=== PATIENT | male | born 2000 | race Caucasian/White ===

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

== ENCOUNTER → 2019-01-13 14:59 | Outpatient (CLI) | payer OTHER, SELFPAY ==
--- NOTE | 2019-01-13 15:07 | XR_ITS ---
XR knee LT 3V HISTORY: ITS.REASON: LT KNEE PAIN ORDERING PHYSICIAN: Starr Azevedo APRN PATIENT AGE: 18 years COMPARISON: Rliev FINDINGS: No fracture or dislocation. No lytic or blastic change. Normal mineralization. No significant arthritic changes evident. No other significant findings IMPRESSION: Negative Knee
== END ==
PROVIDERS: PCP Family Medicine; Visit Provider Nurse Practitioner Family
DX: M25.562 Pain in left knee (principal)
CPT/HCPCS: 73562

== ENCOUNTER → 2019-05-24 12:10 | Outpatient (CLI) | payer BC, SELFPAY ==
--- NOTE | 2019-05-24 13:08 | XR_ITS ---
PROCEDURE: XR ACUTE ABDOMEN SERIES CLINICAL INDICATION: RLQ PAIN COMPARISON: CXR2V XR chest 2V from 12/30/2017 FINDINGS: Frontal view the chest shows no acute finding. There is a subtle nodular opacity in the left midlung at 9 mm probably unchanged. Upright and supine views of the abdomen demonstrates a nonspecific nonobstructive bowel gas pattern. No intestinal obstruction free air or acute bony anomalies. There is a small calcific density in the left pelvic region at 2 mm and may be due to phleboliths. IMPRESSION: Nonspecific nonacute findings Dictated by: Rio De Los Santos MD 05/24/2019 13:31 Electronically signed by Rio De Los Santos MD in [place] 05/24/2019 13:31
== END ==
PROVIDERS: PCP Nurse Practitioner Family; Visit Provider Nurse Practitioner Family
DX: R10.31 Right lower quadrant pain (principal)
CPT/HCPCS: 74021

== ENCOUNTER → 2020-02-02 15:06 | Outpatient (CLI) | payer BC, SELFPAY | PROVIDERS: PCP Family Medicine; Visit Provider Nurse Practitioner | DX: Z20.828 Contact with and (suspected) exposure to other viral communicable diseases (principal) | CPT/HCPCS: U0003 ==

== ENCOUNTER 2021-10-06 19:16 | Emergency (ER) | payer BC, SELFPAY ==
--- NOTE | 2021-10-06 19:23 | XR_ITS ---
PROCEDURE INFORMATION: Exam: XR Right Foot Exam date and time: 10/06/2021 7:23 PM Age: 21 years old Clinical indication: Injury or trauma; Other: Hit with softball on lateral foot; Blunt trauma; Right; Additional info: Pain aftger hit with softball during practice TECHNIQUE: Imaging protocol: XR Right foot. Views: 3 or more views. COMPARISON: CR XR ANKLE RT MIN 3V 10/06/2021 7:21 PM FINDINGS: Bones/joints: No acute fracture or dislocation. Soft tissues: Normal. IMPRESSION: No acute fracture or dislocation.
--- NOTE | 2021-10-06 19:23 | XR_ITS ---
PROCEDURE INFORMATION: Exam: XR Right Ankle Exam date and time: 10/06/2021 7:21 PM Age: 21 years old Clinical indication: Injury or trauma; Other: Hit with softball lateral ankle and foot; Blunt trauma; Right; Additional info: Pain lateral ankle and foot after being hit with softball during practice TECHNIQUE: Imaging protocol: XR Right ankle. Views: 3 or more views. COMPARISON: CR (KNEE AP, KNEE, KNEE AP) 01/13/2019 3:21 PM FINDINGS: Bones/joints: No acute fracture or dislocation. Soft tissues: Mild lateral soft tissue edema. IMPRESSION: No acute fracture or dislocation.
[2021-10-06 20:14] VITALS: BP 155/97; PULSE 101; RESP 19; TEMP 36.9; O2SAT 96; BMI 31.1
--- NOTE | 2021-10-06 20:47 | HMH.EDUTC ---
[facility] [place] Disposition Clinical Impression: Contusion of foot, right Qualifiers: Encounter type: initial encounter Qualified Code(s): S90.31XA - Contusion of right foot, initial encounter Disposition: Home, Self-Care Condition on Discharge: Good Instructions: How to Use Crutches, How to Apply an Felix Wrap, DI for Foot Pain Additional Instructions: Rest the extremity, apply ice for 15 minutes as tolerated three or four times per day, Wear the felix wrap for compression, Elevate the extremity as tolerated while you are resting. Take ibuprofen for pain. I sent in a prescription to your pharmacy. Follow up with Dr. Jewell (orthopedics). Sometimes there can be fractures that don't show up well on the first set of x-rays. So, you should follow up if you continue to have symptoms. I put in a referral but you need to call her office and schedule an appointment. Follow up with your regular doctor. GO TO THE ER FOR ANY WORSENING SYMPTOMS Prescriptions: Ibuprofen [Ibuprofen 800mg Tablet] 800 mg PO Q8HP PRN #30 tab PRN Reason: Moderate Pain Transmission Status: Received by [id number] Referrals: Mna Guan MD [Primary Care Provider] - Jennifer Jewell DPM [Staff Physician] - Time of Disposition: 21:01 Medical Decision Making - Medical Records Medical records reviewed: No: I reviewed the patient's medical records. - José Miguel Inquiry Pt receiving controlled substance: No Vital Signs: 10/06/21 20:14 10/06/21 21:09 Temperature 98.4 F 98.4 F Temperature Source Oral Pulse Rate 101 H Pulse Rate [Left] 101 H Respiratory Rate 19 19 Blood Pressure 155/97 H Blood Pressure [Right Arm] 155/97 H Blood Pressure Mean [Right Arm] 116 02 Sat by Pulse Oximetry 96 - Radiology Data #1 Image(s): Foot/Toes Image Reviewed: Yes I reviewed the patient's radiology image, Yes I have reviewed radiologist's interpretation Preliminary Findings: Normal/NAD PROCEDURE INFORMATION: Exam: XR Right Foot Exam date and time: 10/06/2021 7:23 PM Age: 21 years old Clinical indication: Injury or trauma; Other: Hit with softball on lateral foot; Blunt trauma; Right; Additional info: Pain aftger hit with softball during practice TECHNIQUE: Imaging protocol: XR Right foot. Views: 3 or more views. COMPARISON: CR XR ANKLE RT MIN 3V 10/06/2021 7:21 PM FINDINGS: Bones/joints: No acute fracture or dislocation. Soft tissues: Normal. IMPRESSION: No acute fracture or dislocation. [facility] [place] HPI - General Stated complaint: rt foot injury ao 10/06/21 Time Seen by Provider: 10/06/21 20:47 Mode of Arrival: Ambulatory Source of Information: Patient Limitations: No Limitations Description of Symptoms (Recalled from Triage Doc. by RN): pt was playing softball and the ball hit him on the top of his R foot. R foot/ankle pain HEENT Symptoms (Recalled from RN notes): No Resp Symptoms (Recalled from RN notes): No Skin Symptoms (Recalled from RN notes): No MS Symptoms (Recalled from RN notes): Yes Functional Status (Recalled from RN notes): wnl - History of Present Illness Provider Complaint: He was hitting softball in a batting cage. Someone hit a line drive and it hit him on the top of the right foot. Onset (ago): hour(s) - Related Data Previous Rx's Medication Instructions Recorded Ibuprofen [Ibuprofen 800mg 800 mg PO Q8HP PRN #30 tab 10/06/21 Tablet] Allergies Allergy/AdvReac Type Severity Reaction Status Date / Time No Known Allergies Allergy Unverified 06/17/17 15:05 - Worker's Comp Is this a Worker's Comp case?: No [facility] History - Hepatitis A Screen Drug use history?: No High risk sexual behaviors?: No History of sexually transmitted infection?: No Currently employed?: No Childcare worker?: No Do you have indoor plumbing?: Yes Do you have electricity?: Yes Attestation statement:: This patient has been screened
[2021-10-06 21:09] VITALS: BP 155/97; PULSE 101; RESP 19; TEMP 36.9
== END 2021-10-06 21:11 | disposition home or self-care (01) ==
PROVIDERS: Emergency Provider Nurse Practitioner Family; PCP Family Medicine
DX: S90.31XA Contusion of right foot, initial encounter (principal); M25.571 Pain in right ankle and joints of right foot; Z79.1 Long term (current) use of non-steroidal anti-inflammatories (NSAID); W21.07XA Struck by softball, initial encounter
CPT/HCPCS: 73610; 73630; 99213; G0463

== ENCOUNTER 2023-04-03 19:04 | Emergency (ER) | payer OTHER, SELFPAY ==
[2023-04-03 19:05] VITALS: BP 151/94; PULSE 75; RESP 19; TEMP 36.7; O2SAT 98; BMI 33.0
[2023-04-03 19:09] VITALS: BP 151/94; PULSE 79; O2SAT 96
--- NOTE | 2023-04-03 19:19 | CT_ITS ---
PROCEDURE INFORMATION: Exam: CT Abdomen And Pelvis Without Contrast Exam date and time: 04/03/2023 7:45 PM Age: 23 years old Clinical indication: Abdominal pain; Flank; Left; Additional info: L acute flank pain TECHNIQUE: Imaging protocol: Computed tomography of the abdomen and pelvis without contrast. Radiation optimization: All CT scans at this facility use at least one of these dose optimization techniques: automated exposure control; mA and/or kV adjustment per patient size (includes targeted exams where dose is matched to clinical indication); or iterative reconstruction. REPORTING DATA: Count of CT and Cardiac NM exams in prior 12 months: This patient has received 0 known CTs and 0 known cardiac nuclear medicine studies in the 12 months prior to the current study. COMPARISON: CR XR ACUTE ABDOMEN SERIES 05/24/2019 1:18 PM FINDINGS: Liver: Normal. No mass. Gallbladder and bile ducts: Normal. No calcified stones. No ductal dilation. Pancreas: Normal. No ductal dilation. Spleen: Multiple benign-appearing calcific densities of the spleen. Adrenal glands: Normal. No mass. Kidneys and ureters: Nonobstructive right sided kidney stone measures 3 mm. Mild left hydronephrosis and hydroureter lead up to a ureterolith at the left UVJ ureterolith measuring 2 mm. Nonobstructive left sided kidney stone measures 3 mm. Stomach and bowel: Diverticula are scattered throughout the colon without inflammatory changes. Appendix: No evidence of appendicitis. Intraperitoneal space: Unremarkable. No free air. No significant fluid collection. Vasculature: Unremarkable. No abdominal aortic aneurysm. Lymph nodes: Unremarkable. No enlarged lymph nodes. Urinary bladder: Unremarkable as visualized. Reproductive: Unremarkable as visualized. Bones/joints: Unremarkable. No acute fracture. Soft tissues: Normal. IMPRESSION: Mild left hydronephrosis and hydroureter lead up to a ureterolith at the left UVJ ureterolith measuring 2 mm.
--- NOTE | 2023-04-03 19:22 | HMH.EDGENADL ---
Discharge Plan Disposition Patient Disposition: Home, Self-Care Condition: Good Prescriptions Prescriptions: New ketorolac 10 mg tablet 10 mg PO Q6H PRN (Reason: pain) 5 Days Qty: 20 0RF tamsulosin 0.4 mg capsule 0.4 mg PO HS Qty: 20 0RF ondansetron 4 mg tablet,disintegrating 4 mg PO Q8H PRN (Reason: nausea and vomiting) 5 Days Qty: 10 0RF Referrals Follow up/Referrals: Bubba Markham MD [Primary Care Provider] - See instructions Clinical Impressions Clinical Impression: Urolithiasis Qualifiers: Urinary calculus location: upper urinary tract Qualified Code(s): N20.9 - Urinary calculus, unspecified Instructions Patient Instructions: Kidney Stones -- Adult, DI for Kidney Stones Discharge ED Provider: Rudy Garcia Adult HPI General Chief complaint: Abdominal Pain Stated complaint: LT side pain Time Seen by Provider: 04/03/23 19:07 History of Present Illness HPI narrative: The patient presents with a chief complaint of extreme pain on the left side, radiating from the flank to the back, which has been ongoing for approximately 1 hour and 20 minutes. The pain is described as constant and breathtaking, with no prior history of similar pain. The patient denies any attempts at self-medication, such as taking Tylenol. The patient has no known medical problems, takes no medications, and has no history of kidney stones or family history of kidney stones. The patient denies any previous abdominal surgeries and has no known allergies to medications. The patient reports no associated nausea, vomiting, or dysuria. The pain does not radiate down the leg and there is no midline back pain. The patient denies smoking and any recreational drug use, including intravenous drugs. The patient denies any recent fevers or other symptoms suggestive of infection. Related Data Previous Rx's Medication Instructions Recorded ketorolac 10 mg tablet 10 mg PO Q6H PRN pain 5 days #20 04/03/23 tabs ondansetron 4 mg disintegrating 4 mg PO Q8H PRN nausea and 04/03/23 tablet vomiting 5 days #10 tabs tamsulosin 0.4 mg capsule 0.4 mg PO HS #20 caps 04/03/23 Allergies Allergy/AdvReac Type Severity Reaction Status Date / Time No Known Allergies Allergy Unverified 06/17/17 15:05 PFSH PFSH Disclaimer: The information contained in this section may have been updated after the patient was seen, as this information can be updated by other users. Social History Smoking Status: Never smoker alcohol intake: current current occupational status: other Travel in the last 8 weeks: None ROS Obtained: Yes Systems reviewed as appropriate & no additional complaints except as documented As per HPI Physical Exam General General appearance: alert and other (Acute distress secondary to pain) Head Head exam: atraumatic and normocephalic Eye Eye exam: Present normal appearance Neck Neck exam: Present normal inspection Chest Chest inspection: Present normal inspection and symmetric chest wall rise Respiratory Respiratory exam: Present normal lung sounds bilaterally; Absent respiratory distress Cardiovascular Cardiovascular exam: Present regular rate and normal rhythm Abdominal Exam Abdominal exam: Present soft Abdominal tenderness: Present severe (Left flank tenderness to palpation) Neurological Exam Neurological exam: Present alert and oriented X3 Psychiatric Psychiatric exam: Present normal affect and normal mood Skin Skin exam: Present warm and dry Medical Decision Making Medical Records Medical records reviewed: Yes I reviewed the patient's medical records. José Miguel Inquiry Pt receiving controlled substance: No Vital Signs: 04/03/23 19:05 04/03/23 19:09 04/03/23 20:12 Temperature 98.1 F Temperature Source Oral Pulse Rate 79 Pulse Rate [Right Radial] 75 Respiratory Rate 19 Blood Pressure 151/94 H 132/78 Blood Pressure [Right Arm] 151/94 H Blood Pressure Mean 89 Blood Pressure
--- NOTE | 2023-04-03 19:39 | PC.NURSE ---
patient gone to CT at this time.
[2023-04-03 19:43] LABS: Alanine Aminotransferase 53 U/L (12-78); Albumin Level 5.1 g/dl (3.5-5.0); Albumin/Globulin Ratio 1.4 (1.1-1.8); Alkaline Phosphatase 69 U/L (38-126); Anion Gap 13.8 mEq/L (5-15); Aspartate Amino Transferase 51 U/L (17-59); Bilirubin,Total 0.8 mg/dl (0.2-1.3); Blood Urea Nitrogen 15 mg/dl (9-20); Calcium 9.2 mg/dl (8.4-10.2); Carbon Dioxide 28 mmol/L (22.0-30.0); Chloride 104 mmol/L (98-107); Creatinine Clearance Estimated 129 mL/min (50-200); Estimated Glomerular Filt Rate 68 ml/min (>60); GFR (African American) 82 ML/MIN (>60); Globulin 3.7 g/dL (1.3-3.2); Glucose 111 mg/dl (74-100); Lipase 79 U/L (23-300); Potassium 3.8 mmoL/L (3.5-5.1); Sodium 142 mmol/L (136-145); Total Protein,Serum 8.8 g/dl (6.3-8.2)
--- NOTE | 2023-04-03 19:47 | PC.NURSE ---
patient back in room at this time.
[2023-04-03 19:54] LABS: Basophils # 0.1 K/mm3 (0-0.2); Basophils % 1.4 % (0.1-2.0); Eosinophils # 0.3 K/mm3 (0.0-0.4); Eosinophils % 3.7 % (0.1-12.0); Hematocrit 44.9 % (42.0-52.0); Hemoglobin 15.2 g/dL (14.1-18.0); Lymphocytes # 2.4 K/mm3 (0.7-4.5); Lymphocytes % 33.5 % (10-50); Mean Corpuscular Hemoglobin 29.1 pg (27.0-31.2); Mean Corpuscular Volume 85.6 fl (80-94); Mean Platelet Volume 9.2 fl (7.4-10.4); Monocytes # 0.5 K/mm3 (0.1-1.0); Monocytes % 6.9 % (1.7-9.3); Neutrophils # 3.9 K/mm3 (1.8-7.8); Neutrophils % 54.6 % (37.0-80.0); Platelet Count 257 K/mm3 (142-424); Red Blood Count 5.24 M/mm3 (4.60-6.20); Red Cell Distribution Width 13.1 % (11.5-17.5); White Blood Count 7.1 K/mm3 (4.8-10.8)
[2023-04-03 20:12] VITALS: BP 132/78; PULSE 69; O2SAT 96
[2023-04-03 20:32] LABS: Microscopic, Urine URINE MICROSCOPIC (MICROSCOPIC)
[2023-04-03 20:37] LABS: Appearance,Urine CLEAR (Clear); Bilirubin,Urine Negative (Negative); Blood, Urine 3+ (Negative); Color,Urine YELLOW (Yellow); Glucose,Urine (UA) Negative (Negative); Ketones,Urine Negative (Negative); Leukocyte Esterase,Urine Negative (Negative); Nitrate,Urine Negative (Negative); Protein,Urine TRACE (Negative); Specific Gravity, Urine >= 1.030 (1.005-1.030); Urobilinogen,Urine 0.2 EU/dl (0.2)
--- NOTE | 2023-04-03 20:59 | PC.NURSE ---
called to check on urinalysis-5 mins, spoke with jeanmarie
[2023-04-03 21:01] LABS: RBC,Urine 50-100 #/hpf (0-3); Squamous Epithelial Cell,Urine Occasional #/hpf (0-5); WBC,Urine Occasional #/hpf (0-3)
[2023-04-03 21:15] VITALS: BP 124/73; PULSE 77; RESP 18; TEMP 36.7
== END 2023-04-03 21:16 | disposition home or self-care (01) ==
PROVIDERS: Emergency Provider Emergency Medicine; PCP Family Medicine
DX: N13.0 Hydronephrosis with ureteropelvic junction obstruction (principal); N13.4 Hydroureter; R10.32 Left lower quadrant pain; M54.59 Other low back pain
CPT/HCPCS: 74176; 80053; 81001; 83690; 85025; 96361; 96374; 96375; 99284

== ENCOUNTER 2024-12-29 10:20 | Outpatient (CLI) | payer BC, SELFPAY ==
--- NOTE | 2024-12-29 10:25 | US_ITS ---
FINAL REPORT CLINICAL HISTORY: .hematuria FINDINGS: RENAL ULTRASOUND Ultrasound images of the kidneys were obtained. The right kidney measures 13.2 cm in length. It is normal echogenicity. There is mild hydronephrosis. The left kidney measures 11.3 cm in length. It is normal echogenicity. There is no hydronephrosis. There is moderate splenomegaly with the spleen measuring 14.9 cm. IMPRESSION: Mild right hydronephrosis. Recommend CT scan to determine the etiology of the hydronephrosis. Splenomegaly. Reviewed, Interpreted and Dictated by Chris Mariee MD Transcribed by Cassy Gregory Authenticated and [facility]
--- NOTE | 2024-12-29 10:25 | US_ITS ---
FINAL REPORT CLINICAL HISTORY: BLOOD IN URINE FINDINGS: Limited sonographic images of the bladder were obtained. Bladder volume filled is 130 mL. No post void residual noted. The jets are visualized. IMPRESSION: No postvoid residual. Reviewed, Interpreted and Dictated by Chris Mariee MD Transcribed by Cassy Gregory Authenticated and [facility]
--- OUTSIDE RECORDS SUMMARY | 2024-12-29 10:30 | XMS_ITS | Data Portability ---
Author Organization [facility] ADMIN Address [address] [place] [id number] Care Team Providers Care Dust Sampler Name Role Phone WILY CASTILLO Referring Provider Unavailable Assessment No assessment recorded. Plan of Treatment Reminders Order Date Submit Date Provider Last Modified By Organization Details Last Modified Time Details Appointments None record ed. Lab None record ed. Referral None record ed. Procedures None record ed. Surgeries None record ed. Imaging None record ed. Medication Orders None record ed. Patient TargetsNo targets recorded. Patient InstructionsNo instructions recorded. Reason for Referral None Reported. Problems Name Problem SNOMED Code Status Onset Date Resolution Date Notes Provider Name and Address Organization Details Recorded Time Asthma 201339862 Active 023 Leslie Tavo [facility] & [place] 3 15:21:15 Seasonal allergy 421625809 Active 023 Lesliewillie Vo [facility] & [place] 3 15:21:33 Problem Notes None recorded. Medical Equipment None Reported. Allergies No known drug allergies Medications Name Sig Start Date Stop Date Status Note LastModified by Organization Details LastModified Time azithromycin 250 mg tablet TAKE 2 TABLETS BY MOUTH TODAY, THEN TAKE 1 TABLET DAILY FOR 4 DAYS 02/19 completed Not Available Not Available Not Available famotidine 40 mg tablet TAKE 1 TABLET BY MOUTH ONCE DAILY AT BEDTIME active Not Available Not Available No t Available ciprofloxaci n 500 mg tablet 02/19 completed Not Available Not Available Not Available Zyrtec active Not Available Not Availa ble Not Available Symbicort 160 mcg-4.5 mcg/actuatio n HFA aerosol inhaler INHALE 2 PUFFS BY MOUTH TWICE A DAY 90 active Not Available Not Available No t Available Vitals Date Recorded Body height Body mass index (BMI) Body weight Body temperature Provider Name and Address Organization Details Last Updated DateTime 02/19/2023 177.8 cm 33 kg/m2 694483.25 g 98 [degF] Leslie Vo [place] - [facility] - [place] & [place] 02/19/2023 15:24:48 Social History None recorded. Functional Status Question Answer Note LastModified by Organizat ion Details LastModified Time What is your level of alcohol consumption? Occasional [email or web address] Information not available 02/19/2023 Mental Status None recorded. Family History Relationship Description Onset Age of this Age Resolved Age Notes LastModified by Organization Details LastModified Time Father No current problems or disability [email or web address] Not available 01/29 15:21:18 Mother No current problems or disability [email or web address] Not available 01/29 15:21:18 Medical History Condition Response Diabetes N Bleeding Disorder N None N Colon Cancer N Kidney Stones N Enlarged Prostate N Hyperlipidemia N Heart Disease N Cancer N Diverticulitis N Depression N Past Encounters Encounter ID Performer Location Encounter Start Date Encounter Closed Date Diagnosis/Indication Diagnosis SNOMED-CT Code Diagnosis ICD10 Code Diagnosis Note [id number] Erick Kline Jr, MD [facility] [address] [id number] 02/19/2023 15:07:44 02/19/2023 15:36:41 Epididymitis [id number] N45.1 patient with recent left-sided testicular pain. Patient was treated by his primary care physician with antibiotic s. He states that the pain and swelling have significan tly improved. Physical examinatio n today within normal limits. Patient reassured. We discussed that the likely cause of the epididymit is was the intravascu lar pressures that are transmitte d to the testicle and epididymis with strenuous activities . We discussed preventive measures . Patient to return as needed. Health Concerns Section Related Observation LastModified by Organization Detai ls LastModified Time None Recorded Concern Status LastModified by Organization Details LastModified Time None Recorded Advance Directives Directive None Recorded Payers Insurance Date Sequence Insurance Name Policy Number Policy Larkin Covered Member ID Larkin Member ID Guarantor Name 01/17/2024 1 [facility] [id number] Jose De Jesus Chaney [id number] Jose De Jesus Chaney 01/17/2024 1 [id number] DAVONTE SHANNEN OF [place] [id number] Marta Jung [id number] Jose De Jesus Chaney Notes Date Note Type Note Provider Name and Address Organization Details Recorded Time 02/19/2023 text/html Patient is a 23-year-old white male referred for left testicular pain. Patient states about 10 days ago he began having acute onset of left testicular pain. He presented to his primary care physician he was treated with Cipro. States that the pain and swelling have resolved since then. 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 He denies a previous history of epididymitis. Erick Klien Jr, MD [address] [place] [address], [address], [place], [address], [facility] - [facility] - [place] & [place] 02/19/2023 15:47:50
== END 2024-12-29 23:59 | disposition home or self-care (01) ==
LOC: RAD 10:23
PROVIDERS: PCP Family Medicine; Visit Provider Nurse Practitioner Family
DX: N13.30 Unspecified hydronephrosis (principal)
CPT/HCPCS: 76770; 76857

== ENCOUNTER 2025-01-05 07:57 | Outpatient (CLI) | payer BC, SELFPAY ==
--- NOTE | 2025-01-05 07:59 | CT_ITS ---
FINAL REPORT CLINICAL HISTORY: HYDRONEPHROSIS, RIGHT FLANK PAIN, HX KIDNEY STONES COMPARISON: 04/03/2023 FINDINGS: Lung bases demonstrate calcified granulomas in the left lower lobe. Liver is diffusely fatty infiltrated. Precontrast imaging demonstrates a small, nonobstructing stone in the left renal collecting system measuring 4 mm. There is moderate right hydroureteronephrosis secondary to a 6 mm obstructing stone in the distal ureter. This is best seen on image 113 of series 3. Spleen is at the upper limits of normal in size. Gallbladder is present. Adrenal glands are unremarkable. Appendix is normal. Urinary bladder is unremarkable. There is no adenopathy or free fluid. IMPRESSION: 6 mm obstructing distal right ureteral stone with moderate hydroureteronephrosis. 4 mm nonobstructing stone in the left collecting system. Reviewed, Interpreted and Dictated by Chris Mariee MD Transcribed by Evelia Beck Authenticated and . [facility]
--- OUTSIDE RECORDS SUMMARY | 2025-01-05 08:00 | XMS_ITS | Data Portability ---
Author Organization 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 Plan of Treatment Reminders Order Date Submit Date Provider Last Modified By Organization Details Last Modified Time Details Appointments None recorded. Lab None recorded. Referral None recorded. Procedures None recorded. Surgeries vasectomy (SURG) 2023 025 [email or web address] [facility] Professional Charges, [address], [facility] [address], [place], [address], 10:07:17 Imaging None recorded. Medication Orders Percocet 7.5 mg-325 mg tablet 2024 025 [facility] #[id number], [address] [place], [address], 15:47:11 Bactrim DS 800 mg-160 mg tablet 2024 025 [facility] #[id number], [address] [place], [address], 15:47:06 Patient TargetsNo targets recorded. Patient Instructions Encounter Date Encounter Id Patient Instructions Last Modified By Organization Details Last Modified Time 06/10/2024 [id number] learning about healthy weight [email or web address] Not available 06/13/2024 13:17:02 DISCUSSION OF VASECTOMY : I explained vasectomy is one of the most effective methods of sterilization but is not a guarentee of sterilization. I explained that there are rare failures.I explained the method of performing a vasectomy. I have discussed postoperative instructions including reducing activity, the use of ice packs,use of oral analgesics as prescribed, activity and intercourse restrictions. He understands he is to use protected intercourse until further notice.Risks include but are not limited to bleeding, infection, swelling, bruising, hematoma, injury, damage or harm to testicle(s) or other interscrotal structures, possible anesthetic risks, possible general medical risks and and possible sperm granuloma. [facility] Not available 06/13/2024 13:16:48 Reason for Referral None Reported. Results Created Date Observation Date Name Description Value Unit Range Abnormal Flag Note LastModifiedBy Organization Detail LastModifiedTime 10/14/1910/13/2024 sperm count , semin al fluid (post vasec juana) Unknown Analyte Post Vas Specim en Not Available [facility] [address] [place] [address], [address], 10/13/2024 09:41:57 10/14/1910/13/2024 sperm count , semin al fluid (post vasec juana) Unknown Analyte Absent Not Available [facility] [address] [place] [address] [address], [place], [address], 10/13/2024 09:41:57 10/14/19 25 10/13/2024 sperm count , semin al fluid (post vasec juana) Unknown Analyte clear per FH Not Available [facility] [address], [place], [address], 10/13/2024 09:41:57 Result Notes None recorded. Procedures Surgical History Date Name Laterality Status Provider Name and Address Organization Details Recorded Time 07/28/2024 Vasectomy completed UYEN BERNABE JR, MD [address] [place] [address], [phone], [facility] 07/28/2024 15:46:05 Imaging Results None recorded. Procedure Notes None recorded. Medical Equipment None Reported. Allergies No known drug allergies Medications Name Sig Start Date Stop Date Status Note LastModified by Organization Details LastModified Time Percocet 7.5 mg-325 mg tablet Take 1 tablet every 6 hours by oral route as needed. 025 active Not Available Not Available Not Avai lable Bactrim DS 800 mg-160 mg tablet Take 1 tablet every 12 hours by oral route. 025 active Not Available Not Available Not Avai lable famotidine active Not Available Not Av ailable Not Available Zyrtec active Not Available Not Availa ble Not Available Symbicort active Not Available Not Christina ilable Not Available Vitals Date Recorded Body height Body mass index (BMI) Body weight Provider Name and Address Organization Details Last Updated DateTime 06/10/2024 167.64 cm 38.7 kg/m2 206676.17 g Nishant Matat [facility] 06/10/2024 14:50:19 Social History Question Answer Notes LastModified by [employer] ion Details LastModified Time Tobacco Smoking Status Former Smoker Not Available [employer] 06/10/2024 14:44:41 When Did You Quit Smoking? 1-5yearssin celastcigar ette [email or web address] Information not available 06/10/2024 What Was The Date Of Your Most Recent Tobacco Screening? 06/10/2024 [email or web address] Information not available 06/10/2024 What Is Your Current Pack Years? 10packyears [email or web address] Information not available 06/10/2024 What Is Your Relationship Status? Single [email or web address] Information not available 06/10/2024 At What Age Did You Start Smoking Tobacco? 15 [email or web address] Information not available 06/10/2024 How Much Tobacco Do You Smoke? No [email or web address] Information not available 06/10/2024 How Many Years Have You Smoked Tobacco? 4 [email or web address] Information not available 06/10/2024 Sex: Unknown Functional Status Question Answer Note LastModified by Organizat ion Details LastModified Time How many times per week do you consume alcohol? Less than 1 time per week [email or web address] Information not available 06/10/2024 Do you or have you ever used any other forms of tobacco or nicotine? Yes [email or web address] Information not available 06/10/2024 What is your level of alcohol consumption? Occasional [email or web address] Information not available 06/10/2024 Do you or have you ever used smokeless tobacco? Former smokeless tobacco user [email or web address] Information not available 06/10/2024 Are you currently employed? 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 Former user of electronic cigarettes [email or web address] Information not available 06/10/2024 Mental Status None recorded. Family History Relationship Description Onset Age of this Age Resolved Age Notes LastModified by Organization Details LastModified Time Father Diabetes mellitus [email or web address] Not available 2023 14:51:30 Mother Diabetes mellitus [email or web address] Not available 2023 14:51:38 Medical History Condition Response Allergies/Hayfever Y Seasonal Allergies Y Acid Reflux (GERD) Y Asthma Y Past Encounters Encounter ID Performer Location Encounter Start Date Encounter Closed Date Diagnosis/Indication Diagnosis SNOMED-CT Code Diagnosis ICD10 Code Diagnosis Note [id number] UYEN BERNABE JR, MD [facility] [address] [place] [address] 06/10/2024 14:44:40 06/10/2024 14:59:41 Male sterilization 709695030 Z30.2 [id number] UYEN BERNABE JR, MD SURGERY SCHEDULE [address] [place] [address] 07/28/2024 13:42:39 07/28/2024 13:43:43 Male sterilization 561446972 Z30.2 Health Concerns Section Related Observation LastModified by Organization Detai ls LastModified Time None Recorded Concern Status LastModified by Organization Details LastModified Time None Recorded Advance Directives Directive None Recorded Payers Insurance Date Sequence Insurance Name Policy Number Policy Larkin Covered Member ID Larkin Member ID Guarantor Name 04/15/2024 1 *SELF PAY* Ja rred Earlywine 08/04/2024 1 [place] [id number] Jose De Jesus Earlywine [id number] Jose De Jesus Earlywine Notes Date Note Type Note Provider Name and Address Organization Details Recorded Time 06/10/2024 text/html Patient is in today to consider vasectomy. He has three children and is . No history of scrotal surgery or trauma. UYEN BERNABE JR, MD [facility] [place], [address], [facility] 06/13/2024 13:17:04 07/28/2024 text/html Patient is in today to consider vasectomy. He has three children and is . No history of scrotal surgery or trauma. UYEN BERNABE JR, MD [facility] [place], [address], [facility] 07/28/2024 16:05:23
--- OUTSIDE RECORDS SUMMARY | 2025-01-05 08:00 | XMS_ITS | Data Portability ---
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 Medical [...] Updated DateTime 02/19/2023 177.8 cm 33 kg/m2 428789.25 g 98 [degF] Leslie Vo [place] - [facility] - [place] & [place] 02/19/2023 15:24:48 Social History None recorded. Functional Status Question Answer Note LastModified by Organizat ion Details LastModified Time What is your level of alcohol consumption? Occasional [email or web address] Information not available 02/19/2023 Mental Status None recorded. Family History Relationship Description Onset Age of this Age Resolved Age Notes LastModified by Organization Details LastModified Time Father No current problems or disability [email or web address] Not available 01/29 15:21:18 Mother No current problems or disability [email or web address] Not available 01/29 15:21:18 Medical History Condition Response Diabetes N None N Bleeding Disorder N Colon Cancer N Kidney Stones N Enlarged Prostate N Hyperlipidemia N Cancer N Diverticulitis N Depression N Heart Disease N Past Encounters Encounter ID Performer Location Encounter Start Date Encounter Closed Date Diagnosis/Indication Diagnosis SNOMED-CT Code Diagnosis ICD10 Code Diagnosis Note [id number] Erick Kline Jr, MD [facility] [address] [address] 02/19/2023 15:07:44 02/19/2023 15:36:41 Epididymitis 82856074 N45.1 patient with recent left-sided testicular pain. [...] Larkin Member ID Guarantor Name 01/17/2024 1 [facility] [id number] Jose De Jesus Chaney [id number] Jose De Jesus Chaney 01/17/2024 1 [place] DAVONTE SHANNEN [place] [id number] Marta Jung [id number] Jose De Jesus Chaney Notes Date [...] denies a previous history of epididymitis. Erick Kline Jr, MD [address] [place] [address], [address], [place], [address], [facility] - [facility] - [place] & [place] 02/19/2023 15:47:50
[2025-01-05] MEDS: IOPAMIDOL-370 (76%);100ML BOTTLE 75 ML IV (08:33)
[2025-01-05] MEDS: SODIUM CHLORIDE 0.9% 10ML SYR (RAD ONLY) 10 ML IV (08:33)
== END 2025-01-05 23:59 | disposition home or self-care (01) ==
LOC: RAD 07:58
PROVIDERS: PCP Family Medicine; Visit Provider Nurse Practitioner Family
DX: N13.2 Hydronephrosis with renal and ureteral calculous obstruction (principal)
CPT/HCPCS: 74178; Q9967